=== PATIENT | male | born 1970 | race Caucasian/White ===

== ENCOUNTER 2018-07-05 10:55 | Emergency (ER) | payer OTHER ==
[~2018-07-05] VITALS: Ht 185.4 cm; Wt 99.8 kg
--- NOTE | ~2018-07-05 | EKG ---
[place], [place] ELECTROCARDIOGRAM REPORT NAME: SATURNINO CHRISTIE UNIT #: [id number] ROOM: DOCTOR: EPIPHANY DRAFT REPORT BIRTHDATE: [birth year] [facility] Test Date: 2018-07-05 Test Time: 11:02:17 Pat Name: SATURNINO CHRISTIE Department: ER Room: Gender: Roofer Helper: : 1970 Requested By: MICHELLE WALTON Order Number: [id number] Reading MD: Manny Hazel MD Measurements Intervals [place] Rate: 69 P: 69 NE: 161 QRS: 30 QRSD: 107 T: 28 QT: 392 QTc: 420 Interpretive Statements Sinus rhythm Electronically Signed On 07-05-2018 16:50:51 PDT by Manny Hazel MD CM:EKGRPT:ELECTROCARDIOGRAM REPORT 1102 1650 MICHELLE WALTON MD EPIPHANY DRAFT REPORT MICHELLE WALTON MD
[~2018-07-05 10:55] MED LIST: NKHM; VICODIN ES 7501 TAB PO
[2018-07-05 11:22] LABS: BASO # 0.1 10*3/uL (0.0-0.1); BASO % 0.8 % (0.0-1.0); EOS # 0.1 10*3/uL (0.0-0.4); EOS % 1.9 % (1.0-4.0); HEMATOCRIT 42.9 % (42.0-52.0); HEMOGLOBIN 15.4 g/dl (14.0-18.0); LYMPH # 2.6 10*3/uL (1.3-4.4); LYMPH % 34.8 % (27.0-41.0); MEAN CELL VOLUME 82.3 fl (80.0-94.0); MEAN CORPUSCULAR HGB 29.6 pg (27.0-31.0); MEAN CORPUSCULAR HGB CONC 35.9 g/dl (33.0-37.0); MEAN PLATELET VOLUME 9.6 fl (9.6-12.3); MONO # 0.4 10*3/uL (0.1-1.0); MONO % 5.6 % (3.0-9.0); NEUT # 4.3 10*3/uL (2.3-7.9); NEUT % 56.6 % (47.0-73.0); PLATELET COUNT AUTOMATED 192 10*3/uL (130-400); RED BLOOD COUNT 5.21 10*6/uL (4.50-5.90); RED CELL DISTRI WIDTH 12.3 % (0-14.5); WHITE BLOOD COUNT 7.5 10*3/uL (4.8-10.8)
[2018-07-05 11:32] LABS: ACT PARTIAL THROMBO TIME 21.9 SECONDS (20.8-31.5); INTERNATIONAL NORM RATIO 0.9 (2.0-3.5)
[2018-07-05 11:39] LABS: ALBUMIN 3.9 gm/dl (3.1-4.5); ALKALINE PHOSPHATASE 37 U/L (45-117); BUN 14 mg/dl (7-24); CHLORIDE 107 mmol/L (98-107); CREATININE 0.82 mg/dL (0.70-1.30); POTASSIUM 3.7 mmol/L (3.5-5.1); SGOT/AST 17 IU/L (3-35); SGPT/ALT 25 U/L (12-78); SODIUM 143 mmol/L (136-145); TOTAL PROTEIN 7.2 gm/dL (6.4-8.2)
[2018-07-05 11:42] LABS: TROPONIN I < 0.015 ng/ml (<0.045)
== END 2018-07-05 14:15 | disposition home or self-care (01) ==
LOC: ED 10:55
PROVIDERS: Emergency Medicine
DX: R07.89 Other chest pain (principal); J40 Bronchitis, not specified as acute or chronic; Z88.0 Allergy status to penicillin

== ENCOUNTER 2020-08-12 23:08 | Emergency (ER) | payer OTHER ==
[~2020-08-12] VITALS: Ht 185.4 cm; Wt 102.1 kg
== END 2020-08-13 02:00 | disposition home or self-care (01) ==
LOC: ED 23:08
DX: S05.01XA Injury of conjunctiva and corneal abrasion without foreign body, right eye, initial encounter (principal); Z88.0 Allergy status to penicillin; X58.XXXA Exposure to other specified factors, initial encounter; Y93.89 Activity, other specified; Y92.89 Other specified places as the place of occurrence of the external cause; Y99.8 Other external cause status

== ENCOUNTER → 2021-08-16 | Outpatient (CLI) | payer OTHER | END | disposition home or self-care (01) | LOC: CT 07:52 | PROVIDERS: ATTEND Otolaryngology | DX: J34.89 Other specified disorders of nose and nasal sinuses (principal); R43.9 Unspecified disturbances of smell and taste; J34.2 Deviated nasal septum ==

== ENCOUNTER → 2021-09-06 | Outpatient (CLI) | payer OTHER | END | disposition home or self-care (01) | LOC: LAB 10:42 | PROVIDERS: ATTEND Internal Medicine | DX: R05.9 Cough, unspecified (principal); M79.10 Myalgia, unspecified site ==

== ENCOUNTER → 2022-03-20 | Outpatient (CLI) | payer OTHER | END | disposition home or self-care (01) | LOC: RAD 03-17 08:00 | PROVIDERS: ATTEND Specialist | DX: R13.10 Dysphagia, unspecified (principal); K44.9 Diaphragmatic hernia without obstruction or gangrene ==